=== PATIENT | male | born 1995 | race Caucasian/White ===

== ENCOUNTER 2018-05-13 11:29 | Emergency (ER) | payer OTHER ==
[~2018-05-13] VITALS: Ht 172.7 cm; Wt 129.3 kg
[~2018-05-13 11:29] MED LIST: ABILIFY10 MG; ADDERALL 10 MG10 MG; CLONIDINE0.1 PO; CONCERTA54 M1 PO; FIORICET 50-321 EACH PO; FISH OIL300 MG; METFORMIN HCL1000 M1 PO; NORCO 5-325 TA1 EACH PO; PROPRANOLOL 1010 MG; VITAMIN D22000 UNIT PO
[2018-05-13] MEDS ORDERED: NORCO 5-325 TA1 EACH PO (12:46)
[2018-05-13 13:00] VITALS: BP 109/59
== END 2018-05-13 13:01 | disposition home or self-care (01) ==
LOC: ER 11:29
DX: R51 Headache (principal); F32.9 Major depressive disorder, single episode, unspecified; Z88.6 Allergy status to analgesic agent